=== PATIENT | male | born 1955 | race Two or more races ===

== ENCOUNTER 2025-02-24 10:05 | Inpatient (IN) | payer SELFPAY ==
[2025-02-24] VITALS (27 sets, daily range): BP systolic 101–142; BP diastolic 66–100; PULSE 47–80; RESP 9–18; TEMP 97.8–98.5; O2SAT 95–100
[~2025-02-24] VITALS: Ht 175.3 cm; Wt 97.9 kg
--- NOTE | 2025-02-24 10:11 | ED.PDOC ---
HPI Comments 69 y.o male presents to the ED via EMS for a chief complaint of substernal chest pain associated with SOB that started today at work. EMS reports on scene, patient was diaphoretic, cool and clammy. Patient was given 324mg ASA and 0.5 NTG by the paramedics bringing pain level from a 10/10 to a 7/10. Patient denies any previous chest pain, cardiac history, nausea, vomiting, diarrhea, abdominal pain, fever or chills. Patient mentions carrying boxes at work today when pain presented. Time Seen by MD: 10:04 Reviewed Notes: Nurses Notes, Executive Administrative Asst Notes, Medications, Allergies Allergies: Coded Allergies: NO KNOWN ALLERGIES (Unverified , 02/24/25) Information Source: Patient Mode of Arrival: EMS Severity: Moderate Timing: Hours Duration: Since onset Prehospital treatment: 12 Lead EKG, ASA, Pediatrician, NTG Location: Substernal Radiation: No Radiation Quality: Sharp Onset: With Light Exertion Cardiac Risk Factors: None PE Risk Factors: None History of: None Modifying Factors: Nothing Associated Signs and Symptoms: SOB Past Medical History PAST MEDICAL HISTORY: Denies Surgical History: Denies all surgeries Family History Family History: Reviewed,noncontributory to illness Social History Smoker: Non-Smoker Alcohol: Denies ETOH Use Drugs: Denies Drug Use Lives In: Home Constitutional: denies: chills, diaphoresis, fatigue, fever, malaise, sweats, weakness, others EENTM: denies: blurred vision, double vision, ear bleeding, ear discharge, ear drainage, ear pain, ear ringing, eye pain, eye redness, hearing loss, mouth pain, mouth swelling, nasal discharge, nose bleeding, nose congestion, nose pain, photophobia, tearing, throat pain, throat swelling, voice changes, others Respiratory: reports: SOB at rest, shortness of breath, SOB with excertion; denies: cough, hemoptysis, orthopnea, stridor, wheezing, others Cardiovascular: reports: chest pain; denies: dizzy spells, diaphoresis, Dyspnea on exertion, edema, irregular heart beat, left arm pain, lightheadedness, palpitations, PND, syncope, others Gastrointestinal: denies: abdomen distended, abdominal pain, blood streaked bowels, constipated, diarrhea, dysphagia, difficulty swallowing, hematemesis, melena, nausea, poor appetite, poor fluid intake, rectal bleeding, rectal pain, vomiting, others Genitourinary: denies: burning, dysuria, flank pain, frequency, hematuria, incontinence, penile discharge, penile sore, pain, testicle pain, testicle swelling, urgency, others Neurological: denies: dizziness, fainting, headache, left sided numbness, left sided weakness, numbness, paresthesia, pre-existing deficit, right sided numbness, right sided weakness, seizure, speech problems, tingling, tremors, weakness, others Musculoskeletal: denies: back pain, gout, joint pain, joint swelling, muscle pain, muscle stiffness, neck pain, others Integumetry: denies: bruises, change in color, change in hair/nails, dryness, laceration, lesions, lumps, rash, wounds, others Allergic/Immunocompromised: denies: Difficulty Healing, Frequent Infections, Hives, Itching, others Hematologic/Lymphatic: denies: anemia, blood clots, easy bleeding, easy bruising, swollen glands, others Endocrine: denies: excessive hunger, excessive sweating, excessive thirst, excessive urination, flushing, intolerance to cold, intolerance to heat, unexplained weight gain, unexplained weight loss, others Psychiatric: denies: anxiety, bipolar disorder, depression, hopeless, panic disorder, schizophrenia, sleepless, suicidal, others All Other Systems: Reviewed and Negative Physical Exam General Appearance: Moderate Distress HEENT: Normal ENT Inspection, Pharynx Normal, TMs Normal Neck: Full Range of Motion, Non-Tender, Normal, Normal Inspection Respiratory: Chest Non-Tender, Lungs Clear, No Accessory Muscle Use, No Re spiratory Distress, Normal Breath Sounds Cardiovascular: Bradycardia Breast Exam: Deferred Gastrointestinal: No Organomegaly, Non Tender, No Pulsatile Mass, Normal Bowel Sounds, Soft Genitalia: Deferred Pelvic: Deferred Rectal: Deferred Extremities: No calf tenderness, Normal capillary refill, Normal inspection, Normal range of motion, Non-tender, No pedal edema Musculoskeletal : Apperance: Normal Neurologic: Alert, industrial gas servicer helper II-XII nml as Tested, No Motor Deficits, Normal Affect, Normal Mood, No Sensory Deficits Cerebellar Function: NOT DONE Reflexes: NOT DONE Skin: Dry, Normal Color, Warm Peripheral Pulses: 3+ Radial (R), 3+ Radial (L) Lymphatic: No Adenopathy EKG EKG : Pulse Rate (adult): 49 Cardiac Rhythm: SB Was a procedure done? Was a procedure done?: No CP Differential Dx Differential Diagnosis: A-fib, A-Flutter, Angina, Anxiety / Panic Attack, Atrial Dysrhythmia, Electrolyte Disorder, N/A Differential Diagnosis: Angina, Chest Wall Pain, Costochondritis, Esophageal reflux/spasm, Gastritis, Myocardial Infarction, Pericarditis X-Ray, Labs, Meds, VS Vital Signs Date Time Temp Pulse Resp B/P (MAP) Pulse Ox O2 Delivery O2 Flow Rate FiO2 02/24/25 10:22 47 16 108/73 (85) 100 02/24/25 10:21 99 Room Air* 0 N/A Nasal Cannula* 02/24/25 10:21 47 02/24/25 10:10 49 02/24/25 10:05 97.5 55 16 133/82 (99) 98 97.5 Lab Test 02/24/25 10:26 Range/Units White Blood Count Pending Red Blood Count Pending Hemoglobin Pending Hematocrit Pending Mean Corpuscular Volume Pending Mean Corpuscular Hemoglobin Pending Mean Corpuscular Hemoglobin Concent Pending Red Cell Distribution Width Pending Platelet Count Pending Mean Platelet Volume Pending Neutrophils (%) (Auto) Pending Lymphocytes (%) (Auto) Pending Monocytes (%) (Auto) Pending Basophils (%) (Auto) Pending Neutrophils # (Auto) Pending Lymphocytes # (Auto) Pending Monocytes # (Auto) Pending Prothrombin Time Pending Prothrombin Time INR Pending Activated Partial Thromboplast Time Pending Sodium Level Pending Potassium Level Pending Chloride Level Pending Carbon Dioxide Level Pending Anion Gap Pending Blood Urea Nitrogen Pending Creatinine Pending Glomerular Filtration Rate Calc Pending BUN/Creatinine Ratio Pending Serum Glucose Pending Calcium Level Pending Troponin I High Sensitivity Pending Current Medications Medications (Trade) Dose Ordered Sig/Huy Route Start Time Stop Time Status Last Admin Clopidogrel Bisulfate (Plavix) 300 mg ONCE ONCE PO 02/24/25 10:45 02/24/25 10:46 DC 02/24/25 10:47 Patient alert. Complaining of chest pain. Vitals stable. Was given aspirin in the field. Was given nitro in the field. EKG does show bradycardia. Spoke with code enforcement supervisor. Establish intravenous access. Was given morphine. Was given Zofran. Explained to the patient. Continue monitoring. Time of 1ST Reevaluation: 10:10 Reevaluation 1ST: Unchanged Patient Education/Counseling: Diagnosis, Treatment, Prognosis Family Education/Counseling: No Family Present Departure 1 Departure Time of Disposition: 10:20 Impression: Primary Impression: STEMI (ST elevation myocardial infarction) Qualified Codes: I21.3 - ST elevation (STEMI) myocardial infarction of unspecified site Disposition: ADMITTED INPATIENT Admit to: Med Surg Condition: Guarded Critical Care Note Critical Care Time?: Yes (90 min-critical care time only) Critical care comment: Bradycardia continue monitor Stability Stability form required: No Heart Score Heart Score: Heart Score Response (Comments) Value History Slightly Suspicious 0 EKG Normal 0 Age >65 2 Risk Factors No known risk factors 0 Troponin Normal limit 0 Total 2 I personally scribed for SARITA VALDEZ MD ([email or web address]) on 02/24/25 at 10:11. Electronically submitted by Millie Montez ([employer]). I personally scribed for SARITA VALDEZ MD ([email or web address]) on 02/24/25 at 10:51. Electronically submitted by Millie Montez ([facility] SARITA VALDEZ MD Feb 24, 2025 10:11
[2025-02-24] MEDS: NITROGLYCERIN 0.4 MG SL TAB SL ONE (10:15)
[2025-02-24] MEDS: ONDANSETRON HCL 4 MG/2 ML VIAL IV ONE (10:15)
[2025-02-24] MEDS: MORPHINE SULFATE 4 MG/ML SYR/VIAL IV ONE (10:15)
--- NOTE | 2025-02-24 10:35 | DVHINCON2 ---
Date Seen: Feb 24, 2025 Referring Physician MD Rolanda Reason for Consultation STEMI History of Present Illness This is a 69-year-old male patient who presents to the emergency room with chief complaint of chest pain. The patient reports that the chest pain began approximately 1 hour prior to emergency room arrival. 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 Associated symptoms include shortness of breath and diaphoresis. Initial twelve lead electrocardiogram reveals sinus bradycardia with ST segment elevation to anterior leads with reciprocal changes to inferior leads. No blood work available at time of assessment as patient just arrived to the emergency room. A code STEMI was inderjit led by depot manager . The patient was loaded on 324 mg of aspirin by EMS en route to the emergency room. The patient was loaded on 300 mg oral Plavix in the emergency room. Significant past medical history includes GERD and obesity. The patient denies any other history. The patient denies any family history of cardiovascular disease. Past Medical History Past medical history reviewed. No other significant than mentioned above. Past Surgical History Patient denies any previous surgeries Family History Family history reviewed. Social History Denies the use of tobacco, alcohol or illicit drugs. Allergies: Coded Allergies: NO KNOWN ALLERGIES (Unverified , 02/24/25) Home Meds Denies taking any prescribed medications Review of Systems Constitutional: No symptom reported Ears, Nose, & Throat: No symptom reported Eyes: No symptom reported Neurological: No symptoms reported Pulmonary/Respiratory: Shortness of breath Cardiovascular: Chest pain Gastrointestinal: No symptom reported Genitourinary: No symptom reported Musculoskeletal: No symptom reported Skin: No symptom reported Psychiatric: No symptom reported Endocrine: No symptom reported Hematologic/Lymphatic: No symptom reported Vital Signs Vital Signs Date Time Temp Pulse Resp B/P (MAP) Pulse Ox O2 Delivery O2 Flow Rate FiO2 02/24/25 10:21 99 Room Air* 0 N/A Nasal Cannula* 02/24/25 10:21 47 02/24/25 10:05 97.5 16 133/82 (99) 97.5 Physical Exam General Appearance: Cooperative. Obese Pulmonary/Respiratory: Clear, bilateral breaths sounds. Cardiovascular/Chest: Regular rate and rhythm. Peripheral Pulses: 2+ Radial (R). 2+ Radial (L). Abdominal Exam: Normal bowel sounds. Ankle Exam: Negative ankle edema Lower extremities: Negative lower extremity edema Neuro/Mental Status: A/OX4, coherent. Thoughts/Psych: Normal thought pattern. Appropriate mood and affect. Good judgment and insight. Appearance: No acute distress. Skin Exam: Normal color. Diaphoretic Labs/Diagnostic Data Labs Test 02/24/25 10:26 Range/Units Assessment Acute ST-elevation myocardial infarction, rule out coronary artery disease Rule out structural heart disease GERD Obesity Plan/Recommendation We will continue with the following plan/recommendations (Dr. Flores): The patient will be emergently taken for a coronary angiogram with left heart catheterization. The procedure discussed with the patient full detail including risks and benefits. Risks include but are not limited to bleeding, contrast induced nephropathy, stroke, and even . The patient understands and is agreeable to undergo the procedure. The patient will be taken at soonest availability. The patient has already been loaded on 324 mg of aspirin by EMS, and 300 mg of oral Plavix. Thank you for allowing us to care for this patient. Please call with any questions or concerns. Critical care time spent: 37 minutes This medical document was created using an electronic medical record system with voice recognition software and computerized dictation system. Although this document has been carefully reviewed, there might still be some phonetic and typographical errors. Occasional wrong-word or ``sound-alike substitutions may have occurred due to the inherent limitations of voice recognition software. These areas are purely typographical due to imperfections of the software programs and do not reflect any compromise in the patient's medical care. Please read the chart carefully and recognize, using context, where these substitutions have occurred. Plan discussed with: Patient NYHA Physical activity limitations: NA Date of Service: Feb 24, 2025 Billing Provider: JAS QURESHI Cardiology Common Codes: 25399-LGFRQXU INP/OBS CARE (High) Cardiology Consultation Codes: 93509-ZKLTOKROU CONSULT <45MIN JAS QURESHI Feb 24, 2025 10:35
[2025-02-24] MEDS: IODIXANOL 320MG/ML 100ML BTL IV ONE ×3 (10:36→11:39)
[2025-02-24] MEDS: ANGIOMAX 250 MG VIAL IV ONE ×2 (10:40→11:29)
[2025-02-24] MEDS: fentaNYL CITRATE 100 MCG/2 ML VL ONE (10:41)
[2025-02-24] MEDS: SODIUM CHL 0.9% 0 ML ONE (10:41)
[2025-02-24] MEDS: MIDAZOLAM HCL 2MG/2ML 2ml VIAL (1mg/ml) ONE (10:41)
[2025-02-24] MEDS: LIDOCAINE 2%HCL (LOCAL ANESTH.) INJ 20ML MDV ONE (10:41)
[2025-02-24] MEDS: HEPARIN SODIUM (PORCINE) 5000 UNITS/ML 1ML VIAL ONE (10:41)
[2025-02-24] MEDS: VERAPAMIL 2.5MG/ML INJ 2ML VIAL IV ONE (10:42)
[2025-02-24] MEDS: CLOPIDOGREL BISULFATE 75 MG TAB PO ONE (10:47)
[2025-02-24] MEDS: CLOPIDOGREL BISULFATE 75 MG TAB ONE (10:47)
[2025-02-24 10:49] LABS: Basophils # (auto) 0.1 10 ^3/uL (0-0.2); Basophils % (auto) 0.7 % (0.0-2.0); Eosinophils # (auto) 0.1 10 ^3/uL (0-0.8); Eosinophils % (auto) 0.8 % (0.0-7.0); Hematocrit 40.1 % (41.0-53.0); Hemoglobin 13.9 g/dL (13.5-17.5); Lymphocytes # (auto) 2.2 10 ^3/uL (0.4-5.4); Lymphocytes % (auto) 24.9 % (10.0-50.0); Mean Corpuscular Hemoglobin 30.3 pg (28.0-32.0); Mean Corpuscular Hgb Conc. 34.6 g/dL (32.0-36.0); Mean Corpuscular Volume 87.5 fL (80.0-100.0); Monocytes # (auto) 0.5 10 ^3/uL (0-1.3); Monocytes % (auto) 5.4 % (0.0-12.0); Neutrophils # (auto) 5.9 10 ^3/uL (1.6-8.6); Neutrophils % (auto) 68.2 % (37.0-80.0); Platelet Count (auto) 315 10^3/uL (140-450); Red Blood Cells 4.58 10^6/uL (4.5-5.90); Red Cell Distribution Width 13.4 % (11.8-14.3); White Blood Cell 8.7 10^3/uL (4.4-10.8)
[2025-02-24 10:53] LABS: Anion Gap 11 (5-15); Carbon Dioxide 24 mmol/L (20-31); Chloride 103 mmol/L (98-107); Potassium 3.5 mmol/L (3.5-5.1); Sodium 138 mmol/L (136-145)
[2025-02-24 10:54] LABS: Calcium 9.5 mg/dL (8.7-10.4)
--- NOTE | 2025-02-24 10:54 | DVH ---
XY CHEST PORTABLE, HISTORY: SOB COMPARISON: None None TECHNICAL DATA: 1 view of the chest was obtained. FINDINGS: Lines and tubes: None Cardiomediastinal silhouette: normal Pulmonary vasculature: normal Lung expansion: normal Lung airspace: normal Lung interstitium: normal Pleura: normal Pneumothorax: no Bones: Unremarkable Other: no IMPRESSION: No acute intrathoracic abnormality.
[2025-02-24 10:59] LABS: BUN/Creatinine Ratio 8.6 (10.0-20.0); Blood Urea Nitrogen 10 mg/dL (9-23)
[2025-02-24] MEDS ORDERED: ONDANSETRON HCL 4 MG/2 ML VIAL IV PRN (11:00)
[2025-02-24] MEDS ORDERED: MORPHINE SULFATE INJ 2 MG/ml SYRG IV PRN (11:00)
[2025-02-24] MEDS ORDERED: ACETAMINOPHEN 325 MG TAB PO PRN (11:00)
[2025-02-24] MEDS ORDERED: MORPHINE SULFATE 4 MG/ML SYR/VIAL IV PRN (11:00)
[2025-02-24] MEDS ORDERED: NITROGLYCERIN 0.4 MG SL TAB SL PRN (11:00)
[2025-02-24] MEDS: ATROPINE SULF 1 MG/10ml SYR ONE (11:02)
--- NOTE | 2025-02-24 11:02 | DVHHP2 ---
History of Present Illness Reason for Visit: Chest pain History of Present Illness Robert Cisneros is a 61-year-old male with past medical history of GERD and vasectomy who presents to the ED via EMS with chest pain. Patient reported that the chest pain started at work. 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 He states that the pain was 10/10 crushing like and constant. Patient also reported that he has been having pain throughout his body for several years and worse when the temperature gets colder. Patient states that he lives at home with his family. He also reports that he does not smoke, drink, or use illicit drugs. Patient denies any recent trauma or injury, recent sick contacts, recent travels, abdominal pain, nausea, vomiting, diarrhea, lightheadedness, weakness, or dizziness. GI: GERD Past Surgical History: Other (Vasectomy) Family History: Other (Both parents ) Smoke: No ALCOHOL: none Drugs: None Lives: with Family Domestic Violence: Neg Review of Systems Cardiovascular: Chest Pain Allergies: Coded Allergies: NO KNOWN ALLERGIES (Unverified , 02/24/25) Exam Vital Signs Vital Signs Date Time Temp Pulse Resp B/P (MAP) Pulse Ox O2 Delivery O2 Flow Rate FiO2 02/24/25 10:51 49 02/24/25 10:22 16 100 Room Air* 0 21 02/24/25 10:22 108/73 (85) 02/24/25 10:05 97.5 97.5 General Appearance: Alert, Oriented X3, Cooperative, No acute distress HEENT: Atraumatic, PERRLA, EOMI, Mucous membr. moist/pink Respiratory: Normal air movement Cardiovascular: Regular rate, Normal S1, Normal S2 Abdominal: Normal bowel sounds, Soft, No tenderness Extremities: No cyanosis, No edema, Normal pulses Skin: No significant lesion Neuro: Normal speech, Normal tone, Sensation intact Psych/Mental Status: Mental status NL, Mood NL Labs/Xrays Labs Test 02/24/25 10:26 Range/Units White Blood Count 8.7 4.4-10.8 10^3/uL Red Blood Count 4.58 4.5-5.90 10^6/uL Hemoglobin 13.9 13.5-17.5 g/dL Hematocrit 40.1 L 41.0-53.0 % Mean Corpuscular Volume 87.5 80.0-100.0 fL Mean Corpuscular Hemoglobin 30.3 28.0-32.0 pg Mean Corpuscular Hemoglobin Concent 34.6 32.0-36.0 g/dL Red Cell Distribution Width 13.4 11.8-14.3 % Platelet Count 315 140-450 10^3/uL Mean Platelet Volume 7.4 6.9-10.8 fL Neutrophils (%) (Auto) 68.2 37.0-80.0 % Lymphocytes (%) (Auto) 24.9 10.0-50.0 % Monocytes (%) (Auto) 5.4 0.0-12.0 % Eosinophils (%) (Auto) 0.8 0.0-7.0 % Basophils (%) (Auto) 0.7 0.0-2.0 % Neutrophils # (Auto) 5.9 1.6-8.6 10 ^3/uL Lymphocytes # (Auto) 2.2 0.4-5.4 10 ^3/uL Monocytes # (Auto) 0.5 0-1.3 10 ^3/uL Eosinophils # (Auto) 0.1 0-0.8 10 ^3/uL Basophils # (Auto) 0.1 0-0.2 10 ^3/uL Nucleated Red Blood Cells 0.0 % XY CHEST PORTABLE, HISTORY: SOB COMPARISON: None None TECHNICAL DATA: 1 view of the chest was obtained. FINDINGS: Lines and tubes: None Cardiomediastinal silhouette: normal Pulmonary vasculature: normal Lung expansion: normal Lung airspace: normal Lung interstitium: normal Pleura: normal Pneumothorax: no Bones: Unremarkable Other: no IMPRESSION: No acute intrathoracic abnormality. 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 PTCA and stenting of the LAD Statin DAPT VEGA inhibitor Diet DVT prophylaxis-SCDs PUD prophylaxis -PPIs Discussed plan of care with patient, patient's daughter, and nurse Plan discussed with: Patient, Daughter My Orders Orders - HETAL KUHN HIM DIRECTOR Procedure Category Date Status Time Admit ADMIT 02/24/25 Verified 10:57 Code Status CODE 02/24/25 Verified 10:57 Vital Signs DARCY 02/24/25 Verified 10:57 Recovery Agent DARCY 02/24/25 Verified 10:57 Aspirin Tablet PHA 02/25/25 Verified 10:00 Lipitor 40mg Hs PHA 02/24/25 Verified Hi-Intensity 22:00 Morphine Sulfate PHA 02/24/25 Verified Injection 11:00 Acetaminophen Tablet PHA 02/24/25 Verified (Tylenol Tablet) 11:00 Complete Blood Count LAB 02/25/25 Verified 04:00 Comprehensive LAB 02/25/25 Verified Metabolic Panel 04:00 Magnesium LAB 02/25/25 Verified 04:00 Lipid Panel LAB 02/25/25 Verified 04:00 Ondansetron Hcl PHA 02/24/25 Verified (Zofran) 11:00 Electrocardigram EKG 02/25/25 Verified 04:00 Troponin-I Hs LAB 02/24/25 Verified 10:57 Cardiac DARCY 02/24/25 Verified Rehabilitation - Outpa Nitroglycerin PHA 02/24/25 Verified Sublingual (Ntrostat 11:00 Morphine Sulfate PHA 02/24/25 Verified Injection 11:00 Stat Ekg For Chest DARCY 02/24/25 Verified Pain 10:57 Notify Md Of Changes DARCY 02/24/25 Verified From Base 10:57 Quarry Supervisor For DARCY 02/24/25 Verified 24 Hours 10:57 Emergency Dysrhythmia DARCY 02/24/25 Verified Protocol 10:57 Rhythm Strips Once DARCY 02/24/25 Verified Every Shift 10:57 Oxygen By Nasal RT 02/24/25 Verified Cannula 10:57 Date of Service: Feb 24, 2025 Billing Provider: HETAL KUHN Common Visit Codes: 32757-DYPVDAT INP/OBS CARE (HIGH) HETAL KUHN Feb 24, 2025 11:02
[2025-02-24 11:03] LABS: Glucose 149 mg/dL (74-106); INR 1.02 (0.9-1.15); Partial Thromboplastin Time 27.1 SEC (24.5-34.5); Prothrombin Time 10.8 sec (9.3-11.8)
[2025-02-24] MEDS: SODIUM CHL 0.9% 50 ML ONE (11:30)
--- NOTE | 2025-02-24 12:43 | DVHOP2 ---
Operative Report - 2 Report Details Date: 02/24/25 Preop Diagnosis: Acute ST-elevation myocardial infarction Postop Diagnosis: Occluded LAD. Ischemic cardiomyopathy. Successful PTCA and stenting of the LAD. Surgeon: Abran Flores MD Anesthesiologist: Conscious sedation Anesthesia: Mac, Local Consent: The patient was informed of the risks and benefits of the procedure. These include but are not limited to complications of anesthesia, postoperative infection, incomplete relief of symptoms, recurrence of symptoms, damage to blood vessels, nerves and tendons, deep venous thrombosis, pulmonary embolism and possible need for repeat surgery in the future. Complications: No complications Indications for Surgery: Acute ST-elevation HI Name of Procedure Performed Left heart catheterization bilateral cine coronary angiography. Left ventriculography. PTCA and stenting of the LAD. Intravascular ultrasound evaluation of the left anterior descending coronary artery. Procedure Details Procedure Details: Prior local anesthesia with 2% lidocaine to the right wrist and full informed consent obtained under fluoroscopic and ultrasound guidance we obtained access into the radial artery through which a six [place] catheter was advanced into the radial artery followed by three five EBU guide into the left ventricle LAD and RCA. Angiographic evaluation was then performed as well as ventriculography. Hemodynamics aortic blood pressure was 110/70. End-diastolic pressure was 16. There was no gradient across the aortic valve on pullback. Coronary anatomy: The RCA is a small codominant vessel it has a 60 70% stenosis proximally. The distal vessel is rather small. Small posterolateral and PDA. Left main is large and normal. There is a mild ostial 30-40% stenosis angiographically. The distal segment is normal. The circumflex has two marginals free of significant disease and it is normal. Left anterior descending is a large vessel it is occluded proximally. Ventriculography in the ESPINOZA projection shows anterior apical and inferior apical severe hypokinesis to akinesis. Angioplasty was performed for which a three five EBU was then used with a Specter wire to cross the area of stenosis. We gained access to the distal LAD and placed a two five balloon. Was significant residual stenosis was present. We placed a three five by 22 mm stent into the proximal are LAD and we performed intravascular ultrasound with a [facility] device showing a mildly undersized stent. No gross anomalies. We then placed a 4-0 by eight stent distal to the original stent given a significant lesion. Postdilatation with a 4-0 balloon at its mid and proximal portions respectively. There was at the end of the procedure RABIA two grade flow. Mild spasm of the diagonal as well was noted. Impression: Successful PTCA and stenting of occluded LAD with an acute ST- elevation myocardial infarction. Decreased left ventricular ejection fraction. Elevated left ventricular end-diastolic pressure at rest. Recommendations: Risk factor modification. Dual antiplatelet therapy. Condition Fair Disposition Still a Patient Date of Service: Feb 24, 2025 Billing Provider: ABRAN FLORES Sr., MD Cardiology Common Codes: 33991-[id number] INP/OBS CARE (High) Cardiology Procedure Codes: 99415 -PTCA W/STENT PLACEMENT ( Intravascular ultrasound evaluation of the LAD.), 45646-NZEG FOR STEMI W/STENT ABRAN FLORES Sr., MD Feb 24, 2025 12:43
[2025-02-24 13:40] LABS: Magnesium 1.6 mg/dL (1.6-2.6)
[2025-02-24] MEDS: MAGNESIUM SULFATE 1GM/100ML 100 ML IV ONE (15:00)
--- NOTE | 2025-02-24 15:50 | DVHSR ---
APPROVED REPORT EXAM: Two-dimensional and M-mode echocardiogram with Doppler and color Doppler. Blood Pressure: 108/73 mmHg INDICATION evaluate cardiac function, wall motion abnormalities RISK FACTORS Obesity: Height: 5'9, Weight: 216 DIMENSIONS LVDd4.3 (3.8-5.7cm)LA (2D)4.2 (1.9-4.0cm)Aortic Root4.1 (2.0-3.7cm) LVDs3.3 (2.5-4.0cm)LA (MM) (1.9-4.0cm)Aortic Cusp Exc1.8 (1.5-2.0cm) EF (%) 47.0 (55-70%)Rt. Atrium4.2 (1.9-4.0cm)Asc. Aorta4.1 cm IVSd1.2 (0.7-1.1cm)RV (D)4.8 (1.8-2.4cm) PWd1.1 (0.7-1.1cm) Mitral Valve MitralMitral Stenosis E wave0.76m/sMV Mean GR.mmHg A wave0.86m/sMV Peak GR.79mmHg E/A ratio0.92D MVAcm2 DECEL [id number] 1/2 Tim[place] Aortic Valve Aortic ValveAortic Stenosis V11.03m/Laverne Mean GR.3mmHg V21.15m/Laverne Peak GR.5mmHg LVOT Diameter2.5 (1.8-2.4cm)Doppler AVA4.39cm2 Tricuspid Valve TR Velocity2.33m/s [id number] Other Information Technically limited study due to body habitus.patient position. Conclusion Technically good study. Sinus rhythm. Aortic root enlargement. Left atrial enlargement. Concentric LVH. Valves appear to be structurally normal. Left ventricular systolic performance is diminished. There is anterior apical and inferior apical ak inesis. EF is approximately 30%. There is good basal septal function. Posterolateral wall moves we ll. RV function is normal. Mild tricuspid regurgitation. No pericardial effusion masses or vegetations.
--- NOTE | 2025-02-24 17:39 | ECG ---
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
[2025-02-24] MEDS: ATORVASTATIN 20 MG TAB PO SCH (21:48)
[2025-02-25] VITALS (20 sets, daily range): BP systolic 116–141; BP diastolic 77–98; PULSE 61–84; RESP 8–36; TEMP 98–98.5; O2SAT 91–98
--- NOTE | 2025-02-25 04:10 | ECG ---
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
[2025-02-25 04:20] LABS: Basophils # (auto) 0 10 ^3/uL (0-0.2); Basophils % (auto) 0.3 % (0.0-2.0); Eosinophils # (auto) 0.1 10 ^3/uL (0-0.8); Eosinophils % (auto) 0.9 % (0.0-7.0); Hematocrit 39.2 % (41.0-53.0); Hemoglobin 13.6 g/dL (13.5-17.5); Lymphocytes # (auto) 2.4 10 ^3/uL (0.4-5.4); Lymphocytes % (auto) 31.8 % (10.0-50.0); Mean Corpuscular Hemoglobin 30.3 pg (28.0-32.0); Mean Corpuscular Hgb Conc. 34.8 g/dL (32.0-36.0); Mean Corpuscular Volume 87.2 fL (80.0-100.0); Monocytes # (auto) 0.6 10 ^3/uL (0-1.3); Monocytes % (auto) 8.1 % (0.0-12.0); Neutrophils # (auto) 4.4 10 ^3/uL (1.6-8.6); Neutrophils % (auto) 58.9 % (37.0-80.0); Nucleated Red Blood Cells % 0.1 %; Platelet Count (auto) 244 10^3/uL (140-450); Red Blood Cells 4.49 10^6/uL (4.5-5.90); Red Cell Distribution Width 13.3 % (11.8-14.3); White Blood Cell 7.4 10^3/uL (4.4-10.8)
[2025-02-25 04:38] LABS: Alanine Aminotransferase 25 U/L (7-40); Albumin 3.9 g/dL (3.2-4.8); Alkaline Phosphatase 83 U/L (46-116); Anion Gap 8 (5-15); BUN/Creatinine Ratio 8.6 (10.0-20.0); Bilirubin, Total 0.7 mg/dL (0.2-1.0); Calcium 9.4 mg/dL (8.7-10.4); Carbon Dioxide 23 mmol/L (20-31); Cholesterol 129 mg/dL (< 200); Glucose 100 mg/dL (74-106); LDL Cholesterol 74 mg/dL (< 100); Magnesium 1.7 mg/dL (1.6-2.6); Sodium 138 mmol/L (136-145); Total Protein 6.8 g/dL (5.7-8.2); Triglycerides 99 mg/dL (< 150)
[2025-02-25 04:47] LABS: Chloride 107 mmol/L (98-107); Potassium 3.4 mmol/L (3.5-5.1)
[2025-02-25 04:48] LABS: Aspartate Aminotransferase 100 U/L (13-40); Blood Urea Nitrogen 8 mg/dL (9-23); HDL Cholesterol 36 mg/dL (40-59)
[2025-02-25] MEDS: POTASSIUM CHL 20 Meq TABLET PO ONE (05:56)
[2025-02-25] MEDS: MAGNESIUM SULFATE 1GM/100ML 100 ML IV SCH (05:57)
[2025-02-25] MEDS: LISINOPRIL 5 MG TAB PO SCH (08:16)
[2025-02-25] MEDS: PANTOPRAZOLE 40 MG/10 ML VIAL INJ IV SCH (08:17)
[2025-02-25] MEDS: CLOPIDOGREL BISULFATE 75 MG TAB PO SCH (08:17)
[2025-02-25] MEDS: ASPirin 81 mg TAB PO SCH (08:18)
[2025-02-25] MEDS: SPIRONOLACTONE 25 MG TAB PO SCH (08:44)
[2025-02-25] MEDS: EMPAGLIFLOZIN 10 MG TAB PO SCH (08:44)
--- NOTE | 2025-02-25 10:30 | DVHPN2 ---
Consult Progress Note Subjective Patient reports: Feels better Other Systems: Patient in normal sinus rhythm on quality assurance monitor chassis. No cardiac events reported overnight Objective vital signs Vital Sign Date Time Temp Pulse Resp B/P (MAP) Pulse Ox O2 Delivery O2 Flow Rate FiO2 02/25/25 09:52 75 02/25/25 09:00 8 130/86 (101) 97 02/25/25 08:00 98.2 98.2 02/25/25 07:33 Room Air* 0 21 Total Intake and Output 02/24/25 02/24/25 02/25/25 15:00 23:00 07:00 Intake Total 500 ml Output Total 300 ml Balance 200 ml medications Current Medications Medications Dose Ordered Sig/Huy Route Start Time Stop Time Status Last Admin Dose Admin Aspirin 81 mg DAILY PO 02/24/25 11:47 02/25/25 08:18 81 MG Atorvastatin Calcium 40 mg HS PO 02/24/25 22:00 02/24/25 21:48 40 MG Morphine Sulfate 2 mg Q30MP PRN IV 02/24/25 11:00 Acetaminophen 650 mg Q6HP PRN PO 02/24/25 11:00 Ondansetron HCl 4 mg Q4HP PRN IV 02/24/25 11:00 Nitroglycerin 0.4 mg Q5MINP PRN SL 02/24/25 11:00 Clopidogrel Bisulfate 75 mg DAILY PO 02/25/25 10:00 02/25/25 08:17 75 MG Lisinopril 2.5 mg DAILY PO 02/25/25 10:00 02/25/25 08:16 2.5 MG Pantoprazole Sodium 40 mg DAILY IV 02/25/25 10:00 02/25/25 08:17 40 MG Empaglifozin 10 mg DAILY PO 02/25/25 10:00 02/25/25 08:44 10 MG Spironolactone 25 mg DAILY PO 02/25/25 10:00 02/25/25 08:44 25 MG Examination: GENERAL:Normal, LUNGS:Normal, CVS:Normal, NEURO:Normal laboratory and microbiology Laboratory Tests 02/25/25 03:45 Test 02/25/25 03:45 Range/Units Serum Glucose 100 74-106 mg/dL Problem List/Assessment/Plan Problem List/Assessment/Plan Acute ST-elevation myocardial infarction s/p PTCA x 2 TOMMIE to LAD Acute on chronic HFrEF, NYHA class II, newly diagnosed Ischemic cardiomyopathy Hypokalemia GERD Obesity Plan/Recommendations (Dr. Flores): Case discussed with . The patient who came in with ST-elevation myocardial infarction was emergently taken for a coronary angiogram with left heart catheterization on 02/24/2025 in which successful PTCA and stenting of occluded LAD was performed. Continue dual antiplatelet therapy and lipid- lowering agent. A transthoracic echocardiogram reveals an EF of approximately 30%. We will initiate the patient on guideline directed medical therapy for CHF as tolerated. Education provided to patient regarding lifestyle and dietary changes. At this time, the patient reports he does not have any insurance. Per RN, manager social services will come talk to the patient about options. Provided the patient with extensive education on the importance on continuing dual antiplatelet therapy. The patient verbalized an understanding. The patient will need to establish a vial gauger in the outpatient setting. Thank you for allowing us to care for this patient. Please call with any questions or concerns. Critical care time spent: 40 minutes. This medical document was created using an electronic medical record system with voice recognition software and computerized dictation system. Although this document has been carefully reviewed, there might still be some phonetic and typographical errors. Occasional wrong-word or ``sound-alike substitutions may have occurred due to the inherent limitations of voice recognition software. These areas are purely typographical due to imperfections of the software programs and do not reflect any compromise in the patient's medical care. Please read the chart carefully and recognize, using context, where these substitutions have occurred. Plan discussed with: Patient Date of Service: Feb 25, 2025 Billing Provider: JAS QURESHI Common Visit Codes: 71947-[id number] CARE 30-74 MIN JAS QURESHI Feb 25, 2025 10:30
[2025-02-25] MEDS ORDERED: ASPI-325 PO (12:01)
[2025-02-25] MEDS ORDERED: ATOR40TA52 PO (12:01)
[2025-02-25] MEDS ORDERED: CLOP75TA70 PO (12:01)
[2025-02-25] MEDS ORDERED: SPIR25TA PO (12:01)
[2025-02-25] MEDS ORDERED: EMPA1TAB PO (12:01)
[2025-02-25] MEDS ORDERED: CARV-214 PO (12:01)
[2025-02-25] MEDS ORDERED: LISI-275 PO (12:01)
--- NOTE | 2025-02-25 12:04 | DVHDS2 ---
Discharge Summary Date of Admission Feb 24, 2025 at 10:57 Date of Discharge: Feb 25, 2025 Labs/Diagnostic Data: Laboratory Results Test 02/25/25 03:45 02/24/25 10:26 White Blood Count 7.4 10^3/uL (4.4-10.8) Red Blood Count 4.49 10^6/uL (4.5-5.90) Hemoglobin 13.6 g/dL (13.5-17.5) Hematocrit 39.2 % (41.0-53.0) Mean Corpuscular Volume 87.2 fL (80.0-100.0) Mean Corpuscular Hemoglobin 30.3 pg (28.0-32.0) Mean Corpuscular Hemoglobin Concent 34.8 g/dL (32.0-36.0) Red Cell Distribution Width 13.3 % (11.8-14.3) Platelet Count 244 10^3/uL (140-450) Mean Platelet Volume 7.2 fL (6.9-10.8) Neutrophils (%) (Auto) 58.9 % (37.0-80.0) Lymphocytes (%) (Auto) 31.8 % (10.0-50.0) Monocytes (%) (Auto) 8.1 % (0.0-12.0) Eosinophils (%) (Auto) 0.9 % (0.0-7.0) Basophils (%) (Auto) 0.3 % (0.0-2.0) Neutrophils # (Auto) 4.4 10 ^3/uL (1.6-8.6) Lymphocytes # (Auto) 2.4 10 ^3/uL (0.4-5.4) Monocytes # (Auto) 0.6 10 ^3/uL (0-1.3) Eosinophils # (Auto) 0.1 10 ^3/uL (0-0.8) Basophils # (Auto) 0 10 ^3/uL (0-0.2) Nucleated Red Blood Cells 0.1 % Sodium Level 138 mmol/L (136-145) Potassium Level 3.4 mmol/L (3.5-5.1) Chloride Level 107 mmol/L (98-107) Carbon Dioxide Level 23 mmol/L (20-31) Anion Gap 8 (5-15) Blood Urea Nitrogen 8 mg/dL (9-23) Creatinine 0.93 mg/dL (0.700-1.30) Glomerular Filtration Rate Calc 89 mL/min (>90) BUN/Creatinine Ratio 8.6 (10.0-20.0) Serum Glucose 100 mg/dL (74-106) Calcium Level 9.4 mg/dL (8.7-10.4) Magnesium Level 1.7 mg/dL (1.6-2.6) Total Bilirubin 0.7 mg/dL (0.2-1.0) Aspartate Amino Transferase (AST) 100 U/L (13-40) Alanine Aminotransferase (ALT) 25 U/L (7-40) Alkaline Phosphatase 83 U/L (46-116) Total Protein 6.8 g/dL (5.7-8.2) Albumin 3.9 g/dL (3.2-4.8) Triglycerides Level 99 mg/dL (< 150) Cholesterol Level 129 mg/dL (< 200) LDL Cholesterol 74 mg/dL (< 100) HDL Cholesterol 36 mg/dL (40-59) Prothrombin Time 10.8 sec (9.3-11.8) Prothrombin Time INR 1.02 (0.9-1.15) Activated Partial Thromboplast Time 27.1 SEC (24.5-34.5) Hemoglobin A1c 5.4 % A1C (<5.7) Troponin I High Sensitivity 187 ng/L (</=54) Thyroid Stimulating Hormone (TSH) 1.68 uIU/mL (0.55-4.78) Other Laboratory Tests 02/25/25 03:45 Brief Hx & Hospital Course: Final diagnoses: Acute ST-elevation myocardial infarction s/p PTCA x 2 TOMMIE to LAD Acute on chronic HFrEF, NYHA class II, newly diagnosed Ischemic cardiomyopathy Hypokalemia GERD Obesity Mixed hyperlipidemia 69-year-old male with a history of hypercholesterolemia came with a acute STEMI that required intervention with PTCA to the LAD with stent placement Overnight he is doing well He was started on guideline directed medical therapy His ejection fraction was 30% He will be discharged home on aspirin and Plavix and Lipitor and lisinopril and Aldactone and Jardiance and Coreg He does not have a primary care physician but he is going to go see his 's primary care physician soon He was seen by the social media marketing specialist to try to get him insurance also The patient is stable for discharge Vital signs are stable Follow up with the PCP and depilatory painter as soon as possible as an outpatient Condition at Discharge: Stable Final Diagnosis/Problems List Acute ST-elevation myocardial infarction s/p PTCA x 2 TOMMIE to LAD Acute on chronic HFrEF, NYHA class II, newly diagnosed Ischemic cardiomyopathy Hypokalemia GERD Obesity Mixed hyperlipidemia Discharge Disposition: Home SNF Discharge Will this Physician continue t: No Discharge Statement: "Patient was advised to return to the ER or call 911 if any headaches, dizziness, shortness of breath, chest pain, abdominal pain, bleeding, fevers, or worsening of medical condition. Patient was counseled about treatment plan, medications, possible side effects, patientverbalized understanding. All questions were answered to the best of my ability. This discharge took greater then 30 minutes in planning, reviewing documentation, counseling the patient, and discussing with other team members." ASSESSMENT ASSESSMENT Assessment Occluded LAD. Ischemic cardiomyopathy. Successful PTCA and stenting ofthe LAD. Date of Service: Feb 25, 2025 Billing Provider: MORELIA MOREJON MD Common Visit Codes: 82869-CSV/OBS DISCH DAY >30min MORELIA MOREJON MD Feb 25, 2025 12:04
--- NOTE | 2025-02-25 13:53 | ECG ---
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
--- NOTE | 2025-02-25 14:14 | ECG ---
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
--- NOTE | 2025-02-25 14:14 | ECG ---
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
[2025-02-25] MEDS ORDERED: CARVEDILOL 3.125 MG TAB PO SCH (22:00)
== END 2025-02-25 17:51 | disposition home or self-care (01) | DRG 321 ==
LOC: ER 10:05 → EDBD 10:05 → OVERFLOW 10:57 → DOU IN ICU 16:08
PROVIDERS: ADMIT Internal Medicine Geriatric Medicine; ATTEND Internal Medicine Geriatric Medicine
PROC: 027035Z Dilation of Coronary Artery, One Artery with Two Drug-eluting Intraluminal Devices, Percutaneous Approach (ICD-10-PCS; principal; 2025-02-24)
PROC: B240ZZ3 Ultrasonography of Single Coronary Artery, Intravascular (ICD-10-PCS; 2025-02-24)
PROC: 4A023N7 Measurement of Cardiac Sampling and Pressure, Left Heart, Percutaneous Approach (ICD-10-PCS; 2025-02-24)
PROC: B211YZZ Fluoroscopy of Multiple Coronary Arteries using Other Contrast (ICD-10-PCS; 2025-02-24)
PROC: B215YZZ Fluoroscopy of Left Heart using Other Contrast (ICD-10-PCS; 2025-02-24)
DX: I21.09 ST elevation (STEMI) myocardial infarction involving other coronary artery of anterior wall (principal); I50.23 Acute on chronic systolic (congestive) heart failure; K21.9 Gastro-esophageal reflux disease without esophagitis; E83.42 Hypomagnesemia; J02.9 Acute pharyngitis, unspecified; E66.9 Obesity, unspecified; I25.5 Ischemic cardiomyopathy; E87.6 Hypokalemia; E78.2 Mixed hyperlipidemia; Z79.899 Other long term (current) drug therapy; Z98.52 Vasectomy status; Z68.31 Body mass index [BMI] 31.0-31.9, adult
CPT/HCPCS: 36415; 71045; 80048; 80053; 80061; 83036; 83735; 84443; 84484; 85025; 85610; 85730; 87081; 92941; 92978; 93005; 93306; 93458; 99152; 99291; 99292; C1874; C1887; G0378; J2250; J2470; Q9967